=== PATIENT | male | born 1950 | race Caucasian/White ===

== ENCOUNTER 2018-05-01 20:55 | Observation (INO) | payer MEDICARE, OTHER ==
--- NOTE | 2018-05-01 21:15 | ED ---
HPI Chest Pain - HPI Summary HPI Summary: This pt is a 67 y/o male presenting to [facility] c/o chest pain since about 20:00 today. Pt describes his chest pain as mild discomfort in the mid sternal area of his chest. Associated symptoms nausea, slight dizziness. Denies vomiting, diaphoresis, fever, chills, abd pain. He took 1 baby aspirin today. PMHx: HTN. Denies hx of DM or cardiac disease. His last stress test was about 1.5 -[address] Sommers. Denies tobacco, drug, and alcohol use. - History of Current Complaint Chief Complaint: EDChestPainROMI Time Seen by Provider: 05/01/18 21:14 Hx Obtained From: Patient Onset/Duration: Started Hours Ago, Still Present Timing: Lasting Hours Current Severity: Mild Pain Intensity: 2 Pain Scale Used: 0-10 Numeric Chest Pain Location: Mid Sternal Chest Pain Radiates: No Character: Other: - discomfort Aggravating Factor(s): Nothing Alleviating Factor(s): Nothing Associated Signs and Symptoms: Positive: Chest Pain, Dizziness, Nausea. Negative: Fever, Chills, Diaphoresis, Abdominal Pain, Vomiting - Allergy/Home Medications Allergies/Adverse Reactions: Allergies Allergy/AdvReac Type Severity Reaction Status Date / Time morphine Allergy Altered Verified 05/01/18 21:01 Mental Status PMH/Surg Hx/FS Hx/Imm Hx Endocrine/Hematology History: Denies: Hx Diabetes Cardiovascular History: Reports: Hx Hypertension - ON MEDS Denies: Hx Pacemaker/ICD Respiratory History: Reports: Hx Sleep Apnea Musculoskeletal History: Reports: Hx Arthritis Denies: Hx Rheumatoid Arthritis, Hx Osteoporosis Sensory History: Reports: Hx Cataracts - BILAT, Hx Contacts or Glasses - GLASSES Denies: Hx Hearing Aid Opthamlomology History: Reports: Hx Cataracts - BILAT, Hx Contacts or Glasses - GLASSES Neurological History: Denies: Other Neuro Impairments/Disorders Psychiatric History: Denies: Hx Panic Disorder - Cancer History Cancer Type, Location and Year: PROSTATE, APPENDIX CANCER Hx Chemotherapy: Yes - APPENDIX- 10 YR AGO Hx Radiation Therapy: No - Surgical History Surgery Procedure, Year, and Place: RIGHT ELBOW. RIGHT CARPAL TUNNEL. RIGHT 3RD DIGIT DIP. APPENDECTOMY. PARTIAL SMALL INTESTINES REMOVED. RT KNEE SCOPE Hx Anesthesia Reactions: No Infectious Disease History: No Infectious Disease History: Denies: Traveled Outside the [place] in Last 30 Days - Family History Known Family History: Positive: Cardiac Disease - Social History Alcohol Use: Occasionally Substance Use Type: Reports: None Smoking Status (MU): Never Smoked Tobacco Have You Smoked in the Last Year: No Review of Systems Negative: Fever, Chills, Skin Diaphoresis Positive: Chest Pain Positive: Nausea. Negative: Abdominal Pain, Vomiting Neurological: Other - POS: dizziness All Other Systems Reviewed And Are Negative: Yes Physical Exam - Summary Physical Exam Summary: Appearance: Well appearing, no pain distress Skin: warm, dry, reflects adequate perfusion Head/face: normal Eyes: EOMI, MARTHA ENT: normal Neck: supple, non-tender Respiratory: CTA, breath sounds present Cardiovascular: RRR, pulses symmetrical Abdomen: non-tender, soft Musculoskeletal: normal, strength/ROM intact Neuro: normal, sensory motor intact, A&Ox3 Triage Information Reviewed: Yes Vital Signs On Initial Exam: Initial Vitals Temp Pulse Resp BP Pulse Ox 97.8 F 82 16 144/90 96 05/01/18 20:57 05/01/18 20:57 05/01/18 20:57 05/01/18 20:57 05/01/18 20:57 Vital Signs Reviewed: Yes Diagnostics - Vital Signs Vital Signs Temp Pulse Resp BP Pulse Ox 05/01/18 20:57 97.8 F 82 16 144/90 96 - Laboratory Lab Statement: Any lab studies that have been ordered have been reviewed, and results considered in the medical decision making process. - Radiology Chest XR Summary of Radiographic Findings: pending radiology report. - EKG 21:06 Cardiac Rate: NL - at 75 bpm EKG Rhythm: Sinus Rhythm Summary of EKG Findings: No acute change compared to EKG in [address] Bonilla. Chest Pain Course/Dx - Course Assessment/Plan: Pt is a 67 y/o male who presents with chest pain since about 20 :00 today. Pt describes his chest pain as mild discomfort in the mid sternal area of his chest. Blood work, EKG, CXR obtained. Discussed the case with Dr. Bonilla, senior private client advisor, who reports EKG today is the same as EKG from 2017. Dr. Bonilla reports not to call STEMI but admit pt to rule out GA. Discussed with Dr. Mcnair, hospitalist, who accepted the pt for admission. Dx: chest pain, rule out GA. - Diagnoses Provider Diagnoses: Chest pain, rule out acute myocardial infarction - Provider Notifications Discussed Care Of Patient With: Leroy Bonilla Time Discussed With Above Provider: 21:20 Instructed by Provider To: Other - Discussed the case with Dr. Bonilla, senior private client advisor, who reports EKG today is the same as EKG from 2017. Dr. Bonilla reports not to call STEMI but admit pt to rule out GA. [21:25] Discussed with Dr. Mcnair, hospitalist, who accepted the pt for admission. Discharge - Sign-Out/Discharge Documenting (check all that apply): Patient Departure - [place] [facility] [place] Received Moderate/Deep Sedation with Procedure: No - Discharge Plan Condition: Stable Disposition: ADMITTED TO [facility] Referrals: Michaela Nunes MD [Primary Care Provider] - - Attestation Statements Document Initiated by Scribe: Yes Documenting Scribe: Guerita Ulloa Provider For Whom Scribe is Documenting (Include Credential): Jose Davis MD Scribe Attestation: I, Guerita Ulloa, scribed for Jose Davis MD on 05/01/18 at 212. Status of Scribe Document: Ready
[2018-05-01] MEDS ORDERED: Aspirin 81 mg CHEW TAB* 81 MG TAB.CHEW PO ONE (21:19)
[2018-05-01] MEDS ORDERED: Nitro 2% OINT* (Nitroglycerin) 1 INCH/PAK PAK TOPICAL ONE (21:22)
[2018-05-01 21:35] LABS: ABS Basophils 0 10^3/ul (0-0.2); ABS Eosinophils 0.1 10^3/ul (0-0.6); ABS Lymphocytes 0.9 10^3/ul (1.0-4.8); ABS Monocytes 0.6 10^3/ul (0-0.8); ABS Neutrophils 4.4 10^3/ul (1.5-7.7); ABS Nucleated RBC 0 10^3/ul; Eosinophil % 2.2 %; Hematocrit 39 % (36-46); Hemoglobin 13.4 g/dL (14.0-18.0); Lymphocyte % 14.8 %; Mean Corpuscular HGB Conc 34 g/dL (31-36); Mean Corpuscular Hemoglobin 30 pg (27-31); Mean Corpuscular Volume 89 fL (80-94); Mean Platelet Volume 7.4 fL (7.4-10.4); Nucleated Red Blood Cells % 0; Platelet Count 185 10^3/uL (150-450); Red Cell Distribution Width 15 % (10.5-15)
[2018-05-01 21:45] LABS: Activated Partial Thrombo Time 29.3 seconds (26.0-36.3); INR 0.96 (0.77-1.02)
[2018-05-01 21:53] LABS: Albumin/Globulin Ratio 1.3 (1-3); Calcium 8.7 mg/dL (8.6-10.3); EGFR African American 97.5 (>60); EGFR Non-African American 80.6 (>60); Potassium 3.9 mmol/L (3.5-5.0); Total Bilirubin 0.5 mg/dL (0.2-1.0)
--- NOTE | 2018-05-01 21:58 | ED ---
Progress - Progress Note Progress Note: Receiving sign out from Dr. Davis, pending second troponin. The plan is for the pt to be admitted. Pt's second troponin was negative. He is admitted to Dr. Mcnair, and he is agreeable with this plan. Course/Dx - Diagnoses Provider Diagnoses: Chest pain, rule out acute myocardial infarction Discharge - Sign-Out/Discharge Documenting (check all that apply): Patient Departure - Admit, Receiving Sign- Out Receiving patient FROM: Jose Davis Patient Received Moderate/Deep Sedation with Procedure: No - Discharge Plan Condition: Stable Disposition: ADMITTED TO [facility] - Attestation Statements Document Initiated by Scribe: Yes Documenting Scribe: Nan Vo Provider For Whom Scribe is Documenting (Include Credential): Elijah Reid MD Scribe Attestation: Nan Mendoza, scribed for Elijah Reid MD on 05/02/18 at 0123. Status of Scribe Document: Ready
[2018-05-01] MEDS ORDERED: Acetaminophen TAB* 325 MG PO PRN (22:56)
[2018-05-01] MEDS ORDERED: Ondansetron INJ* 2 MG/ML VIAL IV PRN (22:56)
[2018-05-02 00:54] LABS: EGFR African American 89.6 (>60); EGFR Non-African American 74.1 (>60)
[2018-05-02 00:59] LABS: Troponin I 0.01 ng/mL (<0.04)
--- NOTE | 2018-05-02 01:16 | HP ---
CC: Dr. Nunes* HISTORY AND PHYSICAL: DATE OF ADMISSION: 05/01/18 PRIMARY CARE PROVIDER: Dr. Nunes. ATTENDING PHYSICIAN WHILE IN THE HOSPITAL: Dr. Luke Mcnair* (report dictated by Srikanth Ramos NP). CHIEF COMPLAINT: Chest discomfort. HISTORY OF PRESENT ILLNESS: Mr. Hu is a 67-year-old male patient who carries a history of nonobstructive coronary artery disease, hypertension, hyperlipidemia, CRISTA. He has a history of chronic back pain, history of colon cancer and prostate cancer, who is coming into the ED today. He says that he got home today around 7 o'clock. Between the hours of 7 or 8 o'clock, he developed a discomfort on the left side of his chest with associated shortness of breath and feeling nauseated. He had no associated diaphoresis. He says that in fact when he actually started walking around, he felt better, then chest discomfort felt better, but he noted that he was feeling lightheaded. He says he just fell off and he was concerned because of the chest discomfort. He alerted his and he felt that he should come to the hospital. He says by the time he got into the hospital into the ER, the discomfort was better. He took an aspirin this morning. He had no nitro. His chest pain was gone. He received nitro here in the ED. He said he was feeling better, but there was concern because of that chest discomfort that he was experiencing. He denied having any radiation up into his jaw and down his arm. He denied having any worsening pain with position. He denied having any recent URI type symptoms or any fevers, chills. No associated vomiting and no abdominal discomfort. Because of his significant risk factors, we were asked to evaluate for admission. PAST MEDICAL HISTORY: Significant for: 1. Hypertension. 2. Hyperlipidemia. 3. CAD, nonobstructive. 4. CRISTA. 5. Chronic back pain. 6. Colon cancer. 7. Prostate cancer. PAST SURGICAL HISTORY: 1. He has had a partial colectomy on the right side. 2. Appendectomy. 3. Cardiac catheterization. 4. Knee arthroscopy. 5. Right elbow surgery. HOME MEDICATIONS: Include: 1. Aspirin 81 mg daily. 2. Losartan 100 mg daily. 3. Atorvastatin 20 mg daily. 4. Flomax 0.4 mg daily. ALLERGIES TO MEDICATIONS: Include MORPHINE. FAMILY HISTORY: His mother had a history of heart disease and father had a history of pancreatitis and diabetes. SOCIAL HISTORY: He does not smoke. He rarely drinks alcohol. Surrogate decision maker is his . REVIEW OF SYSTEMS: There is no documented fever. He denied having any significant weight change. There is no double vision. He denies having any ear discharge. He denied having any rhinorrhea. There is no sore throat. There is no thyroid enlargement. He denies having any chest pain currently. There was chest pain per my HPI. There was no abdominal pain. There was nausea but there was no vomiting. There was no dysuria, no frequency. There was no seizure. No loss of consciousness. No pruritus and no skin ulcerations. Review of 14 systems completed and all others negative. PHYSICAL EXAMINATION GENERAL: At this time, Mr. Hu is a 67-year-old male patient. He is sitting in the ED stretcher. He appears to be well nourished, well developed. He does not appear to be in any acute distress. VITAL SIGNS: Blood pressure 129/78, pulse 79, respirations 16, O2 sat 96%, temperature 97.8. HEENT: Head: Atraumatic, normocephalic. Eyes: EOMs are intact. Sclerae anicteric and not pale. NECK: Supple. Throat: Oral mucosa appears to be moist. No oropharyngeal erythema. LUNGS: Clear to auscultation bilaterally. There were no wheezes, rales, or rhonchi. HEART: Sounds S1, S2. He had a regular rate and rhythm. There were no murmurs , rubs or gallops appreciated. ABDOMEN: Soft, it was flat, it was nontender. Bowel sounds are present. EXTREMITIES: Pulses were 2+ throughout. He is moving all 4 extremities with 5/ 5 strength. NEUROLOGICAL: He is awake. He is alert. He is oriented x3. His speech was clear. Tongue midline. No facial drooping. He had no gross focal deficits. SKIN: Intact. DIAGNOSTIC STUDIES/LAB DATA: Labs today revealed WBC of 6.0, RBC of 4.40, hemoglobin of 13.4, hematocrit of 39, platelet count of 185. INR of 0.96, PTT of 29.3. Sodium 138, potassium 3.9, chloride of 108, bicarb 24, BUN 13, creatinine 0.93, glucose of 91, lactic 0.9, calcium 8.7. Total bili 0.5, AST 20 , ALT 19, alk phos 54. Troponin 0. BNP 26, albumin of 4.0. He had a chest x-ray obtained today, which showed no acute infiltrates or pulmonary edema. He had a normal cardiac silhouette. He had an EKG obtained today, which when reviewing his EKG today shows a normal sinus rhythm, rate of 78. He had flat T-waves in lead III, which is new compared to the previous EKG , but he did have biphasic T-waves in V4, V5, which he has had previously, essentially appears to be similar to his previous EKG, no acute changes were noted. Old medical records were reviewed. ASSESSMENT AND PLAN: Mr. Hu is a 67-year-old male patient, coming into the ED today with complaints of chest discomfort. He will be admitted under observation status for: 1. Chest pain. At this point, he does say again significant risk factors for acute coronary syndrome. Fortunately, he is chest pain free now. My plan would be to get 2 more troponins and EKG in the morning, check a stress test, check his lipid panel and A1c. I am going to go ahead and continue his baby aspirin for the time being and a statin therapy and we will continue to follow. 2. Hypertension. Continue meds as prescribed. 3. Hyperlipidemia. Continue statin therapy. 4. History of nonobstructive coronary artery disease. He is on aspirin and statin and we will continue. 5. History of obstructive sleep apnea. I ordered CPAP. 6. Chronic back pain. Continue p.r.n. medications. 7. History of colon cancer. Follow with his PCP. 8. History of prostate cancer. Follow with his PCP and his urologist. 9. DVT prophylaxis. He is high risk, could be placed on heparin subcu. 10. Code status. Full code. 11. Fluids, electrolytes, and nutrition. He can have a heart healthy diet, then would be n.p.o. after midnight. TIME SPENT: On the admission was 60 minutes, greater than half the time was spent [id number] with the patient obtaining my history and physical, other half of the time was spent going over the plan of care with the patient and implementing the plan of care. I discussed the plan of care with my attending, Dr. Mcnair, he is in agreement. SRIKANTH RAMOS, COGENERATION TECHNICIAN [id number]/[facility] #: [id number] J[facility] PET[facility] VA MEDICAL CENTERShawna
[2018-05-02] MEDS ORDERED: Heparin VIAL(*) 5000 UNITS/ML VIAL (FIVE THOUSAND) SUBCUT SCH (06:00)
[2018-05-02 06:30] LABS: ABS Basophils 0 10^3/ul (0-0.2); ABS Eosinophils 0.2 10^3/ul (0-0.6); ABS Lymphocytes 0.8 10^3/ul (1.0-4.8); ABS Monocytes 0.5 10^3/ul (0-0.8); ABS Neutrophils 3.6 10^3/ul (1.5-7.7); ABS Nucleated RBC 0 10^3/ul; Eosinophil % 3.2 %; Hematocrit 38 % (36-46); Hemoglobin 13.2 g/dL (14.0-18.0); Lymphocyte % 15.8 %; Mean Corpuscular HGB Conc 35 g/dL (31-36); Mean Corpuscular Hemoglobin 31 pg (27-31); Mean Corpuscular Volume 88 fL (80-94); Mean Platelet Volume 7.5 fL (7.4-10.4); Nucleated Red Blood Cells % 0; Platelet Count 174 10^3/uL (150-450); Red Blood Count 4.31 10^6 /uL (4.18-5.48); Red Cell Distribution Width 15 % (10.5-15)
[2018-05-02 06:35] LABS: INR 1.02 (0.77-1.02)
[2018-05-02 06:45] LABS: BUN/Creatinine Ratio 12.8 (8-20); Calcium 8.6 mg/dL (8.6-10.3); EGFR African American 96.3 (>60); EGFR Non-African American 79.6 (>60); HDL Cholesterol 44.4 mg/dL; Potassium 3.7 mmol/L (3.5-5.0)
[2018-05-02] MEDS ORDERED: Aspirin EC TAB* 81 MG TAB.EC PO SCH (09:00)
[2018-05-02] MEDS ORDERED: Losartan TAB* 25 MG PO SCH (09:00)
[2018-05-02] MEDS ORDERED: Tamsulosin CAP* 0.4 MG PO SCH (09:00)
[2018-05-02 12:11] VITALS: BP 130/76
--- NOTE | 2018-05-02 15:24 | DS ---
CC: Dr. Luke Mcnair; Dr. Elijah Reid; Dr. Michaela Nunes DISCHARGE SUMMARY: DATE OF ADMISSION: DATE OF DISCHARGE: 05/02/18 DISCHARGE DIAGNOSES: Are as follows: 1. Chest pain, likely musculoskeletal; resolved. 2. Hypertension, well controlled. 3. Hyperlipidemia, history of. CONDITION: Stable. DISPOSITION: Home. DISCHARGE MEDICATIONS: Are as follows: 1. Aspirin 81 mg p.o. daily. 2. Atorvastatin 20 mg p.o. q.h.s. 3. Losartan 100 mg p.o. daily. 4. Tamsulosin 1 cap 0.4 mg p.o. daily. HISTORY OF PRESENT ILLNESS/HOSPITAL COURSE: The patient is a 67-year-old gentleman with history of n onobstructive coronary artery disease, hypertension, hyperlipidemia as well as history of chronic amy k pain, who mentioned that around 8 o'clock, he started developing some discomfort in the left side o f his chest with associated shortness of breath while feeling nauseated. He mentions by the time asad t he was brought to the hospital upon the insistence of his , his discomfort was better. He had been admitted for chest pain observation and had been ruled out for an acute VA/acute coronary syndro me with negative troponins being negative x3. He did have a stress test done as well, which shows low probability for CAD as well as a D-dimer, which is less than 200, not suggestive of PE. By the time that patient was seen, patient has improved and asymptomatic. REVIEW OF SYSTEMS: The patient denied any current headaches, dizziness, fevers, chills, nausea, vomi ting, chest pain, shortness of breath, increased coughing or sputum production, abdominal pain, diarr hea, constipation pain and/or increased frequency in urination, myalgias, arthralgias, throat pain or new skin lesions. The rest of the 14-point review of systems is otherwise unremarkable. PHYSICAL EXAMINATION: Shows the most recent vital signs of records with blood pressure of 130/76, 97 .5 degrees Fahrenheit, 72 beats per minute heart rate, 21 per minute respiratory rate, saturating at 95% on room air. General Appearance: The patient is awake, alert, and oriented x3, not in acute dis tress. HEENT: Normocephalic, atraumatic. PERRLA. Extraocular muscles intact. Negative for icterus . Moist oral mucosa. Negative throat erythema. Neck is soft, supple with no cervical lymphadenopat hy. No JVD. Heart: S1, S2 within normal limits. Regular rate and rhythm. No murmurs, rubs, and ga llops. Chest: Clear to auscultation bilaterally. Good air entry. No wheezes, rales, or rhonchi. Abdomen is soft, nondistended, nontender. Normoactive bowel sounds x4 quadrants. Extremities: No cy anosis, clubbing, or edema. Psychiatric: No active psychosis, depression, suicidal or homicidal kecia ation. Skin is warm to touch. TIME SPENT: The total time spent evaluating the patient, reviewing pertinent data, and appropriate d ocumentation is 45 minutes. [id number]/[facility] #: [id number]
[2018-05-02] MEDS ORDERED: Atorvastatin* 20 MG TAB PO SCH (21:00)
== END 2018-05-02 13:45 | disposition home or self-care (01) ==
LOC: ED 20:55 → MEDTELE 22:54
PROVIDERS: ADMIT Internal Medicine; ATTEND Student in an Organized Health Care Education/Training Program
DX: R07.9 Chest pain, unspecified (principal); I10 Essential (primary) hypertension; I25.10 Atherosclerotic heart disease of native coronary artery without angina pectoris; G47.33 Obstructive sleep apnea (adult) (pediatric); G89.29 Other chronic pain; M54.9 Dorsalgia, unspecified; Z85.038 Personal history of other malignant neoplasm of large intestine; Z85.46 Personal history of malignant neoplasm of prostate; Z95.1 Presence of aortocoronary bypass graft; Q42.8 Congenital absence, atresia and stenosis of other parts of large intestine; Z90.49 Acquired absence of other specified parts of digestive tract; Z79.82 Long term (current) use of aspirin; Z79.899 Other long term (current) drug therapy; Z88.5 Allergy status to narcotic agent; E78.5 Hyperlipidemia, unspecified
CPT/HCPCS: 36415; 71045; 78452; 80048; 80053; 80061; 82565; 83036; 83605; 83880; 84484; 84520; 85025; 85379; 85610; 85730; 93005; 93017; 96372; 99283; A9270-GY; A9502; G0378; J1644